=== PATIENT | female | born 2005 | race Two or more races ===

== ENCOUNTER 2024-09-06 10:11 | Emergency (ER) | payer OTHER ==
[~2024-09-06] VITALS: Ht 160 cm; Wt 63.5 kg
[~2024-09-06 10:11] MED LIST: LEVO-T50 MCG
[2024-09-06] MEDS ORDERED: CLINDAMYCIN PHOSPHATE 150 MG/ML (600mg) IV SCH (10:54)
[2024-09-06] MEDS ORDERED: DEXTROSE 5 % AND 0.9 % NACL 1,000 ML IV SCH (11:00)
[2024-09-06] MEDS ORDERED: METHYLPREDNISOLONE SOD SUCC 40 MG VIAL IV ONE (11:00)
[2024-09-06 11:23] LABS: HEMATOCRIT 41.3 % (36.0-45.00); HEMOGLOBIN 13.8 g/dL (12.0-15.00); MEAN CELL VOLUME 89.1 fL (80.00-100.00); MEAN CORPUSCULAR HEMOGLOBIN 29.9 pg (27.00-32.0); MEAN CORPUSCULAR HGB CONC 33.5 g/dl (32.0-36.0); PLATELET COUNT 213 K/uL (150-450); RED BLOOD COUNT 4.63 M/uL (4.00-6.00); RED CELL DISTRIBUTION WIDTH 13.1 % (11.5-14.5)
[2024-09-06] MEDS ORDERED: RACEPINEPHRINE HCL 0.5 ML AMPUL IH ONE (11:45)
[2024-09-06 12:12] LABS: ALBUMIN 4.1 gm/dL (3.4-5.0); BILIRUBIN TOTAL 0.53 mg/dL (0.3-1.2); CREATININE SERUM 0.83 mg/dL (0.55-1.02); GFR 87.64; GLOBULINA 3.6 G/DL (2.4-3.5); POTASSIUM 4.02 mEq/L (3.5-5.1); TOTAL PROTEIN 7.7 gm/dL (6.4-8.2)
[2024-09-06] MEDS ORDERED: KETOROLAC TROMETHAMINE 30 MG VIAL IV ONE (12:30)
[2024-09-06] MEDS ORDERED: CLINDAMYCIN HC300 MG PO (14:47)
== END 2024-09-06 14:51 | disposition home or self-care (01) ==
LOC: ER 10:13 → EMR PED 10:13
PROVIDERS: General Practice
DX: R07.0 Pain in throat (principal); R53.81 Other malaise; Z20.822 Contact with and (suspected) exposure to COVID-19
CPT/HCPCS: 36415; 70360; 94640; 96365; 96366; 99283; J1885; J3490; J7070